=== PATIENT | male | born 1945 | race Caucasian/White ===

== ENCOUNTER 2017-09-08 16:46 | Inpatient (IN) | payer OTHER, MEDICARE ==
[~2017-09-08] VITALS: Ht 188 cm; Wt 89.2 kg
[2017-09-08 16:52] VITALS: BP 128/81; PULSE 64; RESP 18; TEMP 98.2; O2SAT 84
[2017-09-08] MEDS ORDERED: TAMS5CAP PO (18:08)
[2017-09-08] MEDS ORDERED: MIRT30TA PO (18:08)
[2017-09-08] MEDS ORDERED: SIMV40TA PO (18:08)
[2017-09-08] MEDS ORDERED: MULTTAB67 PO (18:08)
--- NOTE | 2017-09-08 18:21 | PD ---
HPI Chief Complaint: Depression Time Seen by Provider: 18:04 Travel History International Travel<30 days: No Contact w/Intl Traveler<30days: No Traveled to known affect area: No History of Present Illness HPI The patient is a 72-year-old male who presents to the emergency department for depression and psychiatric evaluation. The patient has a history of depression and anxiety for which he takes mirtazapine 30 mg at night. The patient states they just drove 21 hours from [place] to [place], they were seen in the emergency department in [place]. However, the emergency department would not see them with their insurance, without them pain upfront. Therefore, the drove 21 hours so the could be evaluated at [facility]. The states the patient is having delusions that there are things wrong with the house that they recently sold in [place], however, she states that there are no violations with the cell. She states the patient is not sleeping and has lost upwards of 20 pounds over the last several weeks. The patient denies any physical complaints. He denies any suicidal or homicidal ideation. The patient denies any hallucinations or delusions. He denies any history of thyroid disorders, alcohol abuse, or drug abuse. PFSH Past Medical History Depression: Yes High Cholesterol: Yes Past Surgical History Appendectomy: Yes Tonsillectomy: Yes Social History Alcohol Use: Yes Tobacco Use: No Substance Use: No Allergies-Medications (Allergen,Severity, Reaction): Coded Allergies: No Known Allergies (Verified Allergy, Unknown, 09/08/17) Reported Meds & Prescriptions Reported Meds & Active Scripts Active Reported Mirtazapine 30 Mg Tab 30 Mg PO HS Simvastatin 40 Mg Tab 40 Mg PO HS Flomax (Tamsulosin HCl) 0.4 Mg Cap 0.4 Mg PO HS Multiple Vitamin 1 Tab 1 Tab PO DAILY Review of Systems Except as stated in HPI: all other systems reviewed are Neg Psychiatric: Positive: Anxiety, Depression, No: Suicidal Ideations, Disorder of Thought, Mood Disorder, Substance Abuse, Homicidal Ideation Physical Exam Narrative GENERAL: Awake, alert, pleasant 72-year-old male who appears his stated age and is in no acute respiratory distress. SKIN: Focused skin assessment warm/dry. HEAD: Atraumatic. Normocephalic. EYES: Pupils equal and round. 3 mm bilateral and reactive.. ENT: No nasal bleeding or discharge. Mucous membranes pink and moist. NECK: Trachea midline. No JVD. CARDIOVASCULAR: Regular rate and rhythm. No murmur appreciated. RESPIRATORY: No accessory muscle use. Clear to auscultation. Breath sounds equal bilaterally. MUSCULOSKELETAL: No obvious deformities. No clubbing. No cyanosis. No edema. NEUROLOGICAL: Awake and alert. No obvious cranial nerve deficits. Motor grossly within normal limits. Normal speech. Nonfocal. Oriented 4. Follows commands without difficulty. PSYCHIATRIC: Flat affect. Data Data Last Documented VS Vital Signs Date Time Temp Pulse Resp B/P (MAP) Pulse Ox O2 Delivery O2 Flow Rate FiO2 09/08/17 16:52 98.2 64 18 128/81 (97) 84 Orders Orders Complete Blood Count With Diff (09/08/17 18:12) Comprehensive Metabolic Panel (09/08/17 18:12) Thyroid Stimulating Hormone (09/08/17 18:12) Psych Screen (09/08/17 18:12) Drug Screen, Random Urine (09/08/17 18:12) Alcohol (Ethanol) (09/08/17 18:12) Labs Laboratory Tests Test 09/08/17 18:34 White Blood Count 5.5 TH/MM3 Red Blood Count 4.30 MIL/MM3 Hemoglobin 13.5 GM/DL Hematocrit 39.8 % Mean Corpuscular Volume 92.5 FL Mean Corpuscular Hemoglobin 31.5 PG Mean Corpuscular Hemoglobin Concent 34.0 % Red Cell Distribution Width 14.0 % Platelet Count 137 TH/MM3 Mean Platelet Volume 7.3 FL Neutrophils (%) (Auto) 63.5 % Lymphocytes (%) (Auto) 25.8 % Monocytes (%) (Auto) 8.0 % Eosinophils (%) (Auto) 1.8 % Basophils (%) (Auto) 0.9 % Neutrophils # (Auto) 3.5 TH/MM3 Lymphocytes # (Auto) 1.4 TH/MM3 Monocytes # (Auto) 0.4 TH/MM3 Eosinophils # (Auto) 0.1 TH/MM3 Basophils # (Auto) 0.0 TH/MM3 CBC Comment DIFF FINAL Differential Comment Blood Urea Nitrogen 29 MG/DL Creatinine 1.38 MG/DL Random Glucose 101 MG/DL Total Protein 7.1 GM/DL Albumin 3.6 GM/DL Calcium Level 8.5 MG/DL Alkaline Phosphatase 50 U/L Aspartate Amino Transf (AST/SGOT) 26 U/L Alanine Aminotransferase (ALT/SGPT) 30 U/L Total Bilirubin 0.4 MG/DL Sodium Level 142 MEQ/L Potassium Level 3.6 MEQ/L Chloride Level 109 MEQ/L Carbon Dioxide Level 25.6 MEQ/L Anion Gap 7 MEQ/L Estimat Glomerular Filtration Rate 51 ML/MIN Thyroid Stimulating Hormone 3rd Gen 2.090 uIU/ML Urine Opiates Screen NEG Urine Barbiturates Screen NEG Urine Amphetamines Screen NEG Urine Benzodiazepines Screen NEG Urine Cocaine Screen NEG Urine Cannabinoids Screen NEG Ethyl Alcohol Level LESS THAN 3 MG/DL MDM Medical Decision Making Medical Screen Exam Complete: Yes Emergency Medical Condition: Yes Medical Record Reviewed: Yes Interpretation(s) Laboratory Tests Test 09/08/17 18:34 White Blood Count 5.5 TH/MM3 Red Blood Count 4.30 MIL/MM3 Hemoglobin 13.5 GM/DL Hematocrit 39.8 % Mean Corpuscular Volume 92.5 FL Mean Corpuscular Hemoglobin 31.5 PG Mean Corpuscular Hemoglobin Concent 34.0 % Red Cell Distribution Width 14.0 % Platelet Count 137 TH/MM3 Mean Platelet Volume 7.3 FL Neutrophils (%) (Auto) 63.5 % Lymphocytes (%) (Auto) 25.8 % Monocytes (%) (Auto) 8.0 % Eosinophils (%) (Auto) 1.8 % Basophils (%) (Auto) 0.9 % Neutrophils # (Auto) 3.5 TH/MM3 Lymphocytes # (Auto) 1.4 TH/MM3 Monocytes # (Auto) 0.4 TH/MM3 Eosinophils # (Auto) 0.1 TH/MM3 Basophils # (Auto) 0.0 TH/MM3 CBC Comment DIFF FINAL Differential Comment Blood Urea Nitrogen 29 MG/DL Creatinine 1.38 MG/DL Random Glucose 101 MG/DL Total Protein 7.1 GM/DL Albumin 3.6 GM/DL Calcium Level 8.5 MG/DL Alkaline Phosphatase 50 U/L Aspartate Amino Transf (AST/SGOT) 26 U/L Alanine Aminotransferase (ALT/SGPT) 30 U/L Total Bilirubin 0.4 MG/DL Sodium Level 142 MEQ/L Potassium Level 3.6 MEQ/L Chloride Level 109 MEQ/L Carbon Dioxide Level 25.6 MEQ/L Anion Gap 7 MEQ/L Estimat Glomerular Filtration Rate 51 ML/MIN Thyroid Stimulating Hormone 3rd Gen 2.090 uIU/ML Urine Opiates Screen NEG Urine Barbiturates Screen NEG Urine Amphetamines Screen NEG Urine Benzodiazepines Screen NEG Urine Cocaine Screen NEG Urine Cannabinoids Screen NEG Ethyl Alcohol Level LESS THAN 3 MG/DL Differential Diagnosis Differential diagnosis includes depressive disorder NOS, mood disorder NOS, hypothyroidism, dysthymia, substance-induced mood disorder, bipolar affective disorder. Narrative Course Labs were drawn and sent. Psychiatric evaluation was ordered. Labs reveal a creatinine of 1.38 and chloride 109, otherwise unremarkable. The patient is medically cleared to be evaluated by psychiatry. Disposition as per psych. Diagnosis Primary Impression: Depressive disorder Condition: Stable Robin Pavon MD Sep 08, 2017 18:21
[2017-09-08 18:56] LABS: AUTOMATED NEUTROPHIL # 3.5 TH/MM3 (1.8-7.7); BASOPHIL % 0.9 % (0.0-2.0); EOSINOPHIL # 0.1 TH/MM3 (0-0.4); EOSINOPHIL % 1.8 % (0.0-4.0); HEMATOCRIT 39.8 % (39.0-51.0); HEMOGLOBIN 13.5 GM/DL (13.0-17.0); LYMPH % 25.8 % (9.0-44.0); LYMPHOCYTE # 1.4 TH/MM3 (1.0-4.8); MEAN CELL VOLUME 92.5 FL (80.0-100.0); MEAN CORPUSCULAR HEMOGLOBIN 31.5 PG (27.0-34.0); MEAN PLATELET VOLUME 7.3 FL (7.0-11.0); MONOCYTE # 0.4 TH/MM3 (0-0.9); NEUT % 63.5 % (16.0-70.0); PLATELET COUNT 137 TH/MM3 (150-450); WHITE BLOOD COUNT 5.5 TH/MM3 (4.0-11.0)
[2017-09-08 19:14] LABS: ALBUMIN 3.6 GM/DL (3.4-5.0); AST (GOT) 26 U/L (15-37); BICARBONATE 25.6 MEQ/L (21.0-32.0); BLOOD UREA NITROGEN 29 MG/DL (7-18); CALCIUM 8.5 MG/DL (8.5-10.1); CHLORIDE 109 MEQ/L (98-107); CREATININE 1.38 MG/DL (0.60-1.30); GLOMERULAR FILTRATION RATE 51 ML/MIN (>89); GLUCOSE,RANDOM 101 MG/DL (74-106); SODIUM (NA) 142 MEQ/L (136-145)
[2017-09-08 19:25] LABS: ALKALINE PHOSPHATASE 50 U/L (45-117); ALT (GPT) 30 U/L (12-78); TOTAL BILIRUBIN ADULT 0.4 MG/DL (0.2-1.0); TOTAL PROTEIN 7.1 GM/DL (6.4-8.2)
[2017-09-09 05:53] VITALS: BP 143/82; PULSE 66; RESP 20; O2SAT 97
[2017-09-09] MEDS ORDERED: LORazepam 2 MG/ML VIAL IM ONE (06:00)
[2017-09-09 08:00] VITALS: BP 141/78; PULSE 74; RESP 18; O2SAT 97
[2017-09-09] MEDS ORDERED: LORazepam 2 MG/ML VIAL IM PRN ×2 (10:15)
[2017-09-09] MEDS ORDERED: LORazepam 1 MG TAB PO PRN (10:15)
[2017-09-09] MEDS ORDERED: MAGNESIUM HYDROXIDE SUSP 30 ML CUP PO PRN (10:15)
[2017-09-09] MEDS ORDERED: ALUMINUM/MAGNESIUM/SIMETH 30 ML CUP PO PRN (10:15)
[2017-09-09] MEDS ORDERED: ACETAMINOPHEN 325 MG TAB PO PRN (10:15)
[2017-09-09] MEDS ORDERED: LORazepam 0.5 MG TAB PO PRN (10:15)
[2017-09-09 12:59] VITALS: BP 136/83; PULSE 71; RESP 18; TEMP 97.5; O2SAT 98
[2017-09-09 18:00] VITALS: BP 130/75; PULSE 69; RESP 20; TEMP 97.5; O2SAT 98
[2017-09-09] MEDS: TAMSULOSIN HCL 0.4 MG CAP PO SCH (20:32)
[2017-09-09] MEDS: PRAVASTATIN SOD 80 MG TAB PO SCH (20:32)
[2017-09-09] MEDS ORDERED: MIRTAZAPINE 15 MG TAB PO SCH (21:00)
[2017-09-10 05:33] VITALS: BP 133/76; PULSE 77; RESP 16; TEMP 98.4; O2SAT 97
[2017-09-10 08:46] LABS: BLOOD UREA NITROGEN 35 MG/DL (7-18); CALCIUM 8.7 MG/DL (8.5-10.1); CHLORIDE 108 MEQ/L (98-107); CREATININE 1.41 MG/DL (0.60-1.30); GLOMERULAR FILTRATION RATE 49 ML/MIN (>89); GLUCOSE,RANDOM 119 MG/DL (74-106); SODIUM (NA) 142 MEQ/L (136-145)
[2017-09-10 08:47] LABS: CHOLESTEROL 143 MG/DL (120-200); TRIGLYCERIDES 79 MG/DL (42-150)
[2017-09-10 08:49] LABS: CHOLESTEROL/ HDL RATIO 2.52 RATIO; HDL CHOLESTEROL 56.6 MG/DL (40.0-60.0); LDL CHOLESTEROL 71 MG/DL (0-99)
[2017-09-10] MEDS ORDERED: NICOTINE 21 MG/24 HR PATCH T-DERMAL SCH (09:00)
[2017-09-10] MEDS: ARIPiprazole 10 MG TAB PO SCH (15:15)
--- NOTE | 2017-09-10 15:33 | HHI.HP ---
Provisional Diagnosis Admission Date Sep 09, 2017 at 10:03 [place]. 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 Express and informed consent means consent voluntarily given in writing, by a competent person, after sufficient explanation and disclosure of the subject matter involved to enable the person to make a knowing and willful decision without any element of force, fraud, deceit, duress, or other form of constraint or coercion. This person is 18 years of age or older, is not now known to be incompetent to consent to treatment with a guardian advocate, and does not have a health care surrogate or proxy currently making medical treatment decisions. I have found this person to be one of the following: []xxx Competent to provide express and informed consent, as defined above, for voluntary admission to this facility and is competent to provide express and informed consent for treatment. He/she has the consistent capacity to make well reasoned, willful, and knowing decisions concerning his or her medical or mental health treatment. The person fully and consistently understands the purpose of the admission for examination/placement and is fully capable of personally exercising all rights assured [place] Incompetent to provide express and informed consent to voluntary admission, and this is incompetent to provide express and informed consent to treatment. The person must be transferred to involuntary status and a petition for a guardian advocate filed with the Circuit Court. [] Refusing to provide express and informed consent to voluntary admission but is competent to provide express and informed consent for treatment. The person must be discharged or transferred to involuntary status. Form shall be completed within 24 hours of a person's arrival at the receiving facility and filed in the clinical record of each person: 1. Admitted on a voluntary basis 2. Permitted to provide express and informed consent to his/her own treatment 3. Allowed to transfer from involuntary to voluntary status 4. Prior to permitting a person to consent to his or her own treatment after having been previously found incompetent to consent to treatment. History of Present Illness Capacity: Has Capacity HPI Patient is a 69 through white male comes here voluntarily accompanied by his . It appears patient is selling a home in [place] that is still in process. The also went up to [place] to go home the have there. However patient appears to becoming more depressed over this entire process. Complaining of sad mood increased initial and mid insomnia some decreased energy in the morning. He denies suicidality at this time. He acknowledges some decreased concentration and attention, some mild increased irritability, he denies voices or visions, though there is increased paranoia focused on the selling of a house the [place] attitude towards him and what could possibly happen with the whole sale. He denies any significant alcohol or drug use. Patient is to his second for about a year and a half. Is for 46 years before that is 3 adult children 2 daughters she is close to his son whom he states he is not close to. Patient's attempted taken to an emergency room up in [place] but they discovered that would have to pay out of pocket for this so they drove from [place] down here 21 hours so to come to [place]. Patient gives a history of depression about 15 years ago with similar paranoid feelings. He states he passed the Remeron is been on for years has helped him. He does not see a psychiatrist at this time. In any event this time patient meets criteria for further observation assessment and treatment on a voluntary basis. Will increase patient's Remeron from 30-45 mg at at bedtime. We will add Abilify 10 mg in the morning. Hopeless to be a short stay return home with his Review of Systems Except as stated in HPI: all other systems reviewed are Neg Past Psych History Psychological trauma history Patient denies Violence risk - others (6 mos) Low Violence risk - self (6 mos) Low Substance Abuse History Drugs/Alcohol past 12 months Patient states rare glass of wine denies other drug use Past Family Social History Coded Allergies: No Known Allergies (Verified Allergy, Unknown, 09/08/17) Reported Medications Simvastatin (Simvastatin) 40 Mg Tab, 40 MG PO HS for Cholesterol Management, # 30 TAB 0 Refills 09/08/17 Tamsulosin (Flomax) 0.4 Mg Cap, 0.4 MG PO HS for Manage Prostate Problems, #30 CAP 0 Refills 09/08/17 Multiple Vitamin (Multiple Vitamin) 1 Tab, 1 TAB PO DAILY for Nutritional Supplement, TAB 0 Refills 09/08/17 Discontinued Reported Medications Mirtazapine (Mirtazapine) 30 Mg Tab, 30 MG PO HS for Depression Control, #30 TAB 0 Refills 09/08/17 Current Medications Medications (Trade) Dose Ordered Sig/Shama Route Start Time Stop Time Status Last Admin (Flomax) 0.4 mg HS PO 09/09/17 21:00 09/09/17 20:32 (Pravachol) 80 mg HS PO 09/09/17 21:00 09/09/17 20:32 (Tylenol) 650 mg Q4H PRN PO 09/09/17 10:15 (Milk Of Magnesia Liq) 30 ml DAILY PRN PO 09/09/17 10:15 (Mag-Al Plus Susp Liq) 30 ml Q6H PRN PO 09/09/17 10:15 (Remeron) 45 mg HS PO 09/10/17 21:00 (Abilify) 10 mg DAILY PO 09/10/17 15:15 Family Psych History Patient states mother had history of depression Social History She lives with his new of one and a half years Patient's Strengths (min. 2) Patient verbal able access healthcare Physical Exam Patient medically cleared ED at the present time patient sitting quietly in his room is in no acute distress, he is in no respiratory distress, no complaints of abdominal pain. Patient moving all 4 extremities without difficulty. No abnormal motor movements noted Vital Signs Vital Signs Date Time Temp Pulse Resp B/P (MAP) Pulse Ox O2 Delivery O2 Flow Rate FiO2 09/10/17 05:33 98.4 77 16 133/76 (95) 97 09/09/17 08:00 Room Air I/O 09/10/17 09/10/17 09/11/17 08:00 16:00 00:00 Intake Total 240 ml Balance 240 ml Lab Results Test 09/10/17 07:55 Blood Urea Nitrogen 35 MG/DL Creatinine 1.41 MG/DL Random Glucose 119 MG/DL Calcium Level 8.7 MG/DL Sodium Level 142 MEQ/L Potassium Level 3.5 MEQ/L Chloride Level 108 MEQ/L Carbon Dioxide Level 27.0 MEQ/L Anion Gap 7 MEQ/L Estimat Glomerular Filtration Rate 49 ML/MIN Triglycerides Level 79 MG/DL Cholesterol Level 143 MG/DL LDL Cholesterol 71 MG/DL HDL Cholesterol 56.6 MG/DL Cholesterol/HDL Ratio 2.52 RATIO Mental Status Examination Appearance: Appropriate Consciousness: Alert Orientation: x4 Motor Activity: Normal gait Speech: Unremarkable Language: Adequate Fund of Knowledge: Adequate Attention and Concentration: Adequate Memory: Unremarkable Mood: Sad Affect: Other (slight decreased range and intensity) Thought Process & Associations: Intact Thought Content: Appropriate (to mildly paranoid) Hallucination Type: None Delusion Type: None Suicidal Ideation: No Suicidal Plan: No Suicidal Intention: No Homicidal Ideation: No Homicidal Plan: No Homicidal Intention: No Insight: Adequate Judgment: Adequate Assessment & Plan Problem List: (1) Major depressive disorder, recurrent episode, moderate with mood-congruent psychotic features ICD Codes: F33.1 - Major depressive disorder, recurrent, moderate Assessment & Plan Estimated LOS: 3-5 days patient meets criteria for further inpatient psychiatric assessment observation and treatment on a voluntary basis. We will adjust patient's Remeron from 30-45 mg. We will add Abilify 10 mg in the morning. Office. Fairly short stay and retention return patient was family Discharge Planning Return to family Request HC Surrog/Guard Advoc?: No Vu Seo MD Sep 10, 2017 15:33
[2017-09-10] MEDS ORDERED: hydrOXYzine HCL 50 MG TAB PO PRN (16:00)
[2017-09-10 17:25] LABS: HEMOGLOBIN A1C 5.6 % (4.3-6.0)
[2017-09-10 17:58] VITALS: BP 144/83; PULSE 80; RESP 18; TEMP 97.1; O2SAT 98
[2017-09-10] MEDS: TAMSULOSIN HCL 0.4 MG CAP PO SCH (20:58)
[2017-09-10] MEDS: MIRTAZAPINE 15 MG TAB PO SCH (20:58)
[2017-09-10] MEDS: PRAVASTATIN SOD 80 MG TAB PO SCH (20:59)
[2017-09-10] MEDS ORDERED: diphenhydrAMINE HCL 50 MG CAP PO PRN (21:00)
[2017-09-11 04:55] VITALS: BP 127/81; PULSE 78; RESP 17; TEMP 98.5; O2SAT 98
[2017-09-11] MEDS: MULTIVITAMIN TAB PO SCH (08:46)
[2017-09-11] MEDS: ARIPiprazole 10 MG TAB PO SCH (08:48)
--- NOTE | 2017-09-11 15:27 | HHI.PYPN ---
Subjective Remarks It met the patient's this morning. She acknowledges patient's depression with psychotic features intermittent increasing since the cell of their house here in [place]. This is similar to episodes that happened twice and the years past. She appears to be supportive and caring for this man. Patient then seen on unit is calm cooperative somewhat depressed. Denying suicidality at this time denying voices at this time. Remains somewhat vigilant and paranoid For now continue treatment patient's also verifies that they have documentation of them wishing to be no code or DO NOT RESUSCITATE Review of Systems Except as stated in HPI: all other systems reviewed are Neg Mental Status Examination Appearance: Appropriate Consciousness: Alert Orientation: x4 Motor Activity: Normal gait Speech: Unremarkable Language: Adequate Fund of Knowledge: Adequate Attention and Concentration: Adequate Memory: Unremarkable Mood: Sad Affect: Other (slight decreased range and intensity) Thought Process & Associations: Intact Thought Content: Appropriate (to mildly paranoid) Hallucination Type: None Delusion Type: None Suicidal Ideation: No Suicidal Plan: No Suicidal Intention: No Homicidal Ideation: No Homicidal Plan: No Homicidal Intention: No Insight: Adequate Judgment: Adequate Results Vitals/IOs Vital Signs Date Time Temp Pulse Resp B/P (MAP) Pulse Ox O2 Delivery O2 Flow Rate FiO2 09/11/17 04:55 98.5 78 17 127/81 (96) 98 09/09/17 08:00 Room Air Intake and Output 09/11/17 09/11/17 09/12/17 08:00 16:00 00:00 Intake Total 240 ml 240 ml Balance 240 ml 240 ml Assessment & Plan Problem List: (1) Major depressive disorder, recurrent episode, moderate with mood-congruent psychotic features ICD Codes: F33.1 - Major depressive disorder, recurrent, moderate Assessment & Plan Estimated LOS: days patient remains depressed and somewhat paranoid. Pliant medication. For now continue treatment Justification for Cont. Inpt. At this time patient decompensated placed in a lower level of care Discharge Planning Return home with family Request HC Surrog/Guard Advoc?: Vu Veloz MD Sep 11, 2017 15:27
[2017-09-11 18:20] VITALS: BP 113/65; PULSE 71; RESP 18; TEMP 98.2; O2SAT 97
[2017-09-11] MEDS: MIRTAZAPINE 15 MG TAB PO SCH (21:28)
[2017-09-11] MEDS: PRAVASTATIN SOD 80 MG TAB PO SCH (21:28)
[2017-09-11] MEDS: TAMSULOSIN HCL 0.4 MG CAP PO SCH (21:28)
[2017-09-12 06:01] VITALS: BP 144/89; PULSE 80; RESP 16; TEMP 97.4; O2SAT 94
--- NOTE | 2017-09-12 08:12 | HHI.PYPN ---
Subjective Remarks Patient seen in day room with nurse Charleen, chart review, patient compliant medications, patient discussed with nurse. Patient calm pleasant states she slept quite well last night. It appears somewhat more focused his affect is somewhat improved there seems to be less paranoia and vigilance. For now continue treatment. He is aware that his daughter is coming down here with intent perhaps for he his and his daughter to move up to [place] where they are now anticipated living Review of Systems Except as stated in HPI: all other systems reviewed are Neg Mental Status Examination Appearance: Appropriate Consciousness: Alert Orientation: x4 Motor Activity: Normal gait Speech: Unremarkable Language: Adequate Fund of Knowledge: Adequate Attention and Concentration: Adequate Memory: Unremarkable Mood: Sad Affect: Other (slight decreased range and intensity) Thought Process & Associations: Intact Thought Content: Appropriate (to mildly paranoid) Hallucination Type: None Delusion Type: None Suicidal Ideation: No Suicidal Plan: No Suicidal Intention: No Homicidal Ideation: No Homicidal Plan: No Homicidal Intention: No Insight: Adequate Judgment: Adequate Results Vitals/IOs Vital Signs Date Time Temp Pulse Resp B/P (MAP) Pulse Ox O2 Delivery O2 Flow Rate FiO2 09/12/17 06:01 97.4 80 16 144/89 (107) 94 09/09/17 08:00 Room Air Assessment & Plan Problem List: (1) Major depressive disorder, recurrent episode, moderate with mood-congruent psychotic features ICD Codes: F33.1 - Major depressive disorder, recurrent, moderate Assessment & Plan Estimated LOS: days patient calm pleasant cooperative he now denies suicidality homicidality voices or visions. His paranoia and vigilance are diminished his sleep is improved. For now continue treatment Justification for Cont. Inpt. If this time patient would decompensated placed in a lower level of care Discharge Planning Probable discharge to Request HC Surrog/Guard Advoc?: No Vu Seo MD Sep 12, 2017 08:12
[2017-09-12] MEDS: ARIPiprazole 10 MG TAB PO SCH (08:37)
[2017-09-12] MEDS: MULTIVITAMIN TAB PO SCH (08:37)
[2017-09-12 17:59] VITALS: BP 150/75; PULSE 61; RESP 16; TEMP 98.1; O2SAT 96
[2017-09-12] MEDS: MIRTAZAPINE 15 MG TAB PO SCH (21:23)
[2017-09-12] MEDS: PRAVASTATIN SOD 80 MG TAB PO SCH (21:23)
[2017-09-12] MEDS: TAMSULOSIN HCL 0.4 MG CAP PO SCH (21:23)
[2017-09-13 05:34] VITALS: BP 114/73; PULSE 73; RESP 15; TEMP 97.9; O2SAT 96
[2017-09-13] MEDS: ARIPiprazole 10 MG TAB PO SCH (08:06)
[2017-09-13] MEDS: MULTIVITAMIN TAB PO SCH (08:06)
[2017-09-13] MEDS ORDERED: TAMS5CAP PO (11:51)
[2017-09-13] MEDS ORDERED: ARIP1TAB12 PO (11:51)
[2017-09-13] MEDS ORDERED: REME45TA PO (11:51)
--- NOTE | 2017-09-13 11:55 | HHI.DS ---
Psychiatry Discharge Summary Inpatient Psychiatric care?: Yes Advance Directive: No Reason Not Provided: Due to Patient Condition Mental Health AdvanceDirective: No Health Care Proxy: No Admission Admission Date Sep 09, 2017 at 10:03 Admission Diagnosis: (1) Major depressive disorder, recurrent episode, moderate with mood-congruent psychotic features ICD Code: F33.1 - Major depressive disorder, recurrent, moderate Brief History Patient is a 69 through white male comes here voluntarily accompanied by his . It appears patient is selling a home in [place] that is still in process. The also went up to [place] to go home the have there. However patient appears to becoming more depressed over this entire process. Complaining of sad mood increased initial and mid insomnia some decreased energy in the morning. He denies suicidality at this time. He acknowledges some decreased concentration and attention, some mild increased irritability, he denies voices or visions, though there is increased paranoia focused on the selling of a house the [place] attitude towards him and what could possibly happen with the whole sale. He denies any significant alcohol or drug use. Patient is to his second for about a year and a half. Is for 46 years before that is 3 adult children 2 daughters she is close to his son whom he states he is not close to. Patient's attempted taken to an emergency room up in [place] but they discovered that would have to pay out of pocket for this so they drove from [place] down here 21 hours so to come to [place]. Patient gives a history of depression about 15 years ago with similar paranoid feelings. He states he passed the Remeron is been on for years has helped him. He does not see a psychiatrist at this time. In any event this time patient meets criteria for further observation assessment and treatment on a voluntary basis. Will increase patient's Remeron from 30-45 mg at at bedtime. We will add Abilify 10 mg in the morning. Hopeless to be a short stay return home with his Tobacco Use In Past 30 Days: Refused To Answer Alcohol Use: Monthly or Less Hospital Course Patient's hospital course was uneventful, his delusions and sadness slowly resolved with his participation on the unit, compliance with medication. He was no behavioral problems. We did have meetings with patient's was quite supportive of him. There have been plans made for the patient is discharged to picked up by his and his son is coming into town and then relocating to [place]. At this time patient reached maximum benefit of this hospitalization thus patient will be discharged today to his , Rx 1 month, follow-up mental health services in [place] Results Blood Pressure 114 / 73 Vital Signs Date Time Temp Pulse Resp B/P (MAP) Pulse Ox O2 Delivery O2 Flow Rate FiO2 09/13/17 05:34 97.9 73 15 114/73 (87) 96 09/09/17 08:00 Room Air Laboratory Results Test 09/10/17 07:55 Cholesterol Level 143 MG/DL (120-200) HDL Cholesterol 56.6 MG/DL (40.0-60.0) Hemoglobin A1c 5.6 % (4.3-6.0) LDL Cholesterol 71 MG/DL (0-99) Triglycerides Level 79 MG/DL (42-150) Summary of Procedures None done Pending results at discharge: No Medications # of Antipsychotic meds at D/C: 1 Approp Antipsych med options 1 - Minimum of three failed multiple trials of monotherapy. 2 - Documented plan to taper to monotherapy due to previous use of multiple meds OR cross-taper in progress at D/C. 3 - Documentation of augmentation of Clozapine. 4 - Justification other than those listed in allowable values 1-3, document here : Discharge Discharge Date: Sep 13, 2017 Discharge Diagnosis: (1) Major depressive disorder, recurrent episode, moderate with mood-congruent psychotic features Diagnosis: Principal ICD Code: F33.1 - Major depressive disorder, recurrent, moderate Pt Condition on Discharge: Stable Discharge Disposition: Discharge Home Discharge Instructions Diet Instructions: As Tolerated, No Restrictions Activities you can perform: Regular-No Restrictions Scheduled Appointment: Follow up in [place] Discharge Time > 30 minutes Mental Status Examination Appearance: Appropriate Consciousness: Alert Orientation: x4 Motor Activity: Normal gait Speech: Unremarkable Language: Adequate Fund of Knowledge: Adequate Attention and Concentration: Adequate Memory: Unremarkable Mood: Sad Affect: Other (slight decreased range and intensity) Thought Process & Associations: Intact Thought Content: Appropriate (to mildly paranoid) Hallucination Type: None Delusion Type: None Suicidal Ideation: No Suicidal Plan: No Suicidal Intention: No Homicidal Ideation: No Homicidal Plan: No Homicidal Intention: No Insight: Adequate Judgment: Adequate Discharge/Advance Care Plan Health Problems: (1) Major depressive disorder, recurrent episode, moderate with mood-congruent psychotic features Goals to promote your health * To prevent worsening of your condition and complications * To maintain your health at the optimal level Directions to meet your goals Take your medications as prescribed Follow your dietary instruction Follow activity as directed Keep your appointments as scheduled Take your immunizations and boosters as scheduled If your symptoms worsen call your PCP, if no PCP go to Urgent Care Center or Emergency Room For 24/12 questions related to your inpatient stay or results of tests pending at discharge, please contact Dr. Vu Seo at Smoking is Dangerous to Your Health. Avoid second hand smoking Vu Seo MD Sep 13, 2017 11:55
== END 2017-09-13 13:15 | disposition home or self-care (01) | DRG 885 ==
LOC: NEPD 16:46 → NEDA 09-09 10:03 → H250 09-09 11:37
PROVIDERS: ADMIT Psychiatry & Neurology Psychiatry; ATTEND Psychiatry & Neurology Psychiatry
DX: F33.1 Major depressive disorder, recurrent, moderate (principal); E78.00 Pure hypercholesterolemia, unspecified; F41.9 Anxiety disorder, unspecified; Z81.8 Family history of other mental and behavioral disorders
CPT/HCPCS: 80048; 80053; 80061; 80307; 83036; 84443; 85025; 96372; J2060